=== PATIENT | female | born 1975 | race Caucasian/White ===

== ENCOUNTER 2017-02-11 13:37 | Outpatient (CLI) | payer BC | END 2017-02-11 13:38 | disposition home or self-care (01) | LOC: CONVCARE 13:37 | PROVIDERS: ATTEND Orthopaedic Surgery | DX: M25.531 Pain in right wrist (principal); M67.431 Ganglion, right wrist | CPT/HCPCS: 73110; 73221 ==

== ENCOUNTER 2017-08-18 06:49 | Day surgery (SDC) | payer BC ==
[2017-08-18] MEDS ORDERED: ONDANSETRON HCL 4 MG/2 ML SOL ONE (07:18)
[2017-08-18] MEDS ORDERED: PROPOFOL 500 MG/50 ML EMU IV ONE (07:18)
[2017-08-18] MEDS ORDERED: LIDOCAINE HCL 1% MPF 30 SOL ONE (07:18)
[2017-08-18] MEDS ORDERED: PROPOFOL 10 MG/ML EMU IV ONE (07:19)
[2017-08-18] MEDS ORDERED: FENTANYL 100MCG/2ML SOL ONE (07:19)
[2017-08-18] MEDS ORDERED: MIDAZOLAM 2 MG/2 ML SOL ONE (07:19)
[2017-08-18] MEDS ORDERED: LIDOCAINE HCL 2% MPF 10 ML SOL ONE (07:33)
[2017-08-18] MEDS ORDERED: BUPIVACAINE HCL 0.5% MPF 10 ML SOL ONE (07:33)
[2017-08-18] MEDS ORDERED: METOCLOPRAMIDE HYDROCHLORIDE 5 MG/ML SOL ONE (08:17)
[2017-08-18 09:42] VITALS: BP 112/73; PULSE 67; RESP 20; TEMP 97.2; O2SAT 98
== END 2017-08-18 10:00 | disposition home or self-care (01) ==
LOC: SURG 06:49
PROVIDERS: ATTEND Orthopaedic Surgery
DX: M67.431 Ganglion, right wrist (principal); E11.9 Type 2 diabetes mellitus without complications; Z79.4 Long term (current) use of insulin
CPT/HCPCS: 99001; J2250; J2405; J2765; J3010; A6402; J2001; J2704